=== PATIENT | female | born 1985 | race Caucasian/White ===

== ENCOUNTER 2016-08-20 22:15 | Emergency (ER) | payer SELFPAY ==
[2016-08-21] MEDS ORDERED: ONDANSETRON HCL 4 MG TAB.RAPDIS PO ONE (00:26)
[2016-08-21] MEDS ORDERED: GUAIFENESIN PO PRN (00:26)
[2016-08-21] MEDS ORDERED: DEXTROMETHORPHAN PO PRN (00:26)
[2016-08-21] MEDS ORDERED: CEPHALEXIN 250 MG CAPSULE PO ONE (00:26)
[2016-08-21] MEDS ORDERED: IBUPROFEN 400 MG TABLET PO ONE (00:28)
--- NOTE | 2016-08-21 00:37 | ED Physician Documentation ---
Upper Respiratory Symptoms - HISTORIAN Historian: patient - HPI Stated Complaint: Cough/weakness Chief Complaint: Cough/ Upper Respiratory Additional Information: x2-3 days, some nausea, throat hurts from coughing, dy cough Onset: days ago (2-3) Duration: sudden-Onset Context: denies: recent foreign travel, insect bite(s), tick(s), recent chemotherapy, multiple patients, same sx Severity: moderate Associated Symptoms: chills, earache (left), runny nose, sore throat, other ( nonprod. cough) Worsened by Deep Breath: Yes Further Comments: no - ROS CONST/EYES: denies: weakness, eye redness, eye itching CVS/RESP: other (cough) LYMPH: denies: leg swelling, rash, swollen glands, ankle swelling GI/: nausea NEURO/PSYCH: denies: fainting, dizziness, confusion, anxiety, depression MS/SKIN: denies: joint pain, muscle aches, rash - PAST HX Lung Disease: none PE Risk Factors: none Other History: diabetes Type 2 Surgeries/Procedures: none Immunizations: referred to PCP Allergies/Adverse Reactions: Allergies Allergy/AdvReac Type Severity Reaction Status Date / Time Sulfa (Sulfonamide Allergy Verified 08/21/16 00:11 Antibiotics) Home Medications: Ambulatory Orders Medication Instructions Recorded NK [NK] 08/21/16 - SOCIAL HX Smoking History: non-smoker Alcohol Use: none Drug Use: none - FAMILY HX Family History: no significant history - VITAL SIGNS Vital Signs: Vital Signs Temp Pulse Resp BP Pulse Ox 98.6 F 114 H 18 131/90 96 08/20/16 22:15 08/20/16 22:15 08/20/16 22:15 08/20/16 22:15 08/20/16 22:15 - REVIEWED ASSESSMENTS Nursing Assessment Reviewed: Yes Vitals Reviewed: Yes Progress - Results/Orders Results/Orders: ua, strep, flu a and b, vbg, fingerstick bs - Progress Progress: pt given keflex 100 mg p.o., robitussin 15 ml p.o., motrin 800 mg p.o., glymepiride 2 mg p.o. and zofran 4 mg p.o. in er Critical Care Note - Critical Care Note Total Time (mins): 0 ED Results Lab/Radiology - Lab Results Lab Results: glu > 350 ua has 1+ ketones - Radiology Radiology Impressions: none taken - Orders Orders: ED Orders Category Date Time Status GRP A STREP SCREEN Routine Lab 08/20/16 Ordered INFLUENZA A&B Routine Lab 08/20/16 22:45 Ordered URINALYSIS Routine Lab 08/20/16 23:17 Ordered VENOUS BLOOD GAS Routine Lab 08/20/16 Ordered Cephalexin [Keflex] Med 08/21/16 00:26 Once 1,000 mg PO NOW ONE Chem Sticks Med 08/21/16 07:30 Ordered 1 each [facility] CHEMQID Ibuprofen [Advil] Med 08/21/16 00:28 Once 800 mg PO NOW ONE Ondansetron HCl Rapdis [Zofran Odt] Med 08/21/16 00:26 Once 4 mg PO NOW ONE guaiFENesin DM SUGAR FREE [Robitussin Dm Sugar Free] Med 08/21/16 00:26 Ordered 15 ml PO 1T PRN Upper Respiratory Symptoms - EXAM General Appearance: alert, moderate distress EENT: eyes nml inspection, nml ENT inspection, lids & conjunct. nml, PERRL, TM erythema (left), rhinorrhea, mucosal edema, pharynx nml Neck: normal inspection, thyroid normal, supple Respiratory: no resp. distress, breath sounds nml, no pain on inspiration, speaks full sentences Abdomen: non-tender, no organomegaly, nml bowel sounds, no distention CVS: reg rate & rhythm, heart sounds normal, equal pulses, no murmur, no gallop , PMI nml, no JVD Skin: color nml, no rash, warm,dry Extremities: non-tender, normal range of motion, no evidence of injury, no edema Neuro/Psych: oriented x3, neuro intact, mood/affect nml Discharge Clincal Impression: Bronchitis Home Medications: Ambulatory Orders NK [NK] 08/21/16 Comments: pt. discharged with scripts for glymepiride 4 mg p.o. daily and keflex 500 mg 2 capsules twice daily for 10 days Condition: Stable Disposition: 01 HOME, SELF-CARE Decision to Admit: NO Decision Time: 00:30
[2016-08-21] MEDS ORDERED: guaiFENesin DM 100 MG/10 MG/5 ML 118ML BOTTLE PO ONE (00:41)
[2016-08-21] MEDS ORDERED: GLIMEPIRIDE 2 MG TABLET PO ONE (00:47)
[2016-08-21 01:00] VITALS: BP 126/80
[2016-08-21 06:36] LABS: PH BG VENOUS 7.39 (7.32-7.43)
[2016-08-21 06:46] LABS: OCCULT BLOOD,URINE TRACE-LYSED (NEGATIVE); UROBILINOGEN URINE 0.2 Eu (0.2-1.0)
== END 2016-08-21 00:55 | disposition home or self-care (01) ==
LOC: ED 22:15
DX: J20.9 Acute bronchitis, unspecified (principal)
CPT/HCPCS: 36415; 81002; 82805; 87070; 87400; 87880; A9270; 99283

== ENCOUNTER 2016-09-25 23:16 | Emergency (ER) | payer SELFPAY ==
--- NOTE | 2016-09-25 23:56 | ED Physician Documentation ---
General Adult - HISTORIAN Historian: patient - HPI Stated Complaint: PELVIC ABCESS Chief Complaint: General Adult Additional Information: Abscess in genital region for two weeks. Worse the last 2-4 days. IDDM w/o insulin for months. Denies fever. - ROS CONST: no problems - PAST HX Past History: other (IDDM; bronchitis; non-compliant with meds) Allergies/Adverse Reactions: Allergies Allergy/AdvReac Type Severity Reaction Status Date / Time Sulfa (Sulfonamide Allergy Verified 09/25/16 23:30 Antibiotics) Home Medications: Ambulatory Orders Medication Instructions Recorded Escitalopram Oxalate [Lexapro] 5 mg PO QDAY 09/25/16 Hydroxyzine Pamoate [Vistaril] 25 mg PO QDAY 09/25/16 - SOCIAL HX Smoking History: cigarettes - FAMILY HX Family History: No - VITAL SIGNS Vital Signs: Vital Signs Temp Pulse Resp BP Pulse Ox 98.0 F 115 H 16 128/82 94 09/25/16 23:20 09/25/16 23:20 09/25/16 23:20 09/25/16 23:20 09/25/16 23:20 - REVIEWED ASSESSMENTS Nursing Assessment Reviewed: Yes Vitals Reviewed: Yes Progress - Progress Progress: FSG 384 ED Results Lab/Radiology - Orders Orders: ED Orders Category Date Time Status Chem Sticks Med 09/25/16 23:37 Ordered 1 each [facility] CHEMQ PRN General Adult Physical Exam - PHYSICAL EXAM GENERAL APPEARANCE: mild distress (position changes, walking, uncomfortable) EENT: eye inspection normal, ENT inspection normal NECK: normal inspection, supple RESPIRATORY: no resp distress, breath sounds normal CVS: reg rate & rhythm, heart sounds normal ABDOMEN: soft, other (Mons pubis with generalized swelling, erythema, purple discoloration, multiple areas of fluctuance, especially 2 cm area left of midline. Erythema extends to right glut alont right perineum) BACK: normal inspection SKIN: warm/dry, normal color (except as above) EXTREMITIES: no evidence of injury, no edema NEURO: CN's nml as tested, motor nml, sensation nml Discharge Clincal Impression: Cutaneous abscess Qualifiers: Site of cutaneous abscess: other site Qualified Code(s): L02.818 - Cutaneous abscess of other sites Home Medications: Ambulatory Orders Escitalopram Oxalate [Lexapro] 5 mg PO QDAY 09/25/16 Hydroxyzine Pamoate [Vistaril] 25 mg PO QDAY 09/25/16 Condition: Fair Disposition: 01 HOME, SELF-CARE Decision to Admit: NO Decision Time: 23:54
[2016-09-26 00:21] VITALS: BP 124/87
== END 2016-09-26 00:05 | disposition home or self-care (01) ==
LOC: ED 23:16
DX: L02.818 Cutaneous abscess of other sites (principal); F17.210 Nicotine dependence, cigarettes, uncomplicated
CPT/HCPCS: 99283